=== PATIENT | female | born 1960 | race Caucasian/White ===

== ENCOUNTER 2017-05-27 09:38 | Outpatient (CLI) | payer OTHER, BC ==
[~2017-05-27 09:38] MED LIST: ASPIRIN ADULT L81 M1 PO; CALCIUM PO; COPPER PO; CRANBERRY125 MG PO; FISH OIL1000 M1; PERCOCET1 TA4 PO; PRILOSEC20 MG PO; ZOFRAN4 MG PO; ZOFRAN8 MG PO; [UNRECOGNIZED DRUG - OTHER] PO
== END 2017-05-27 23:00 ==
LOC: LAB SRH 09:38
DX: Z00.00 Encounter for general adult medical examination without abnormal findings (principal); E78.5 Hyperlipidemia, unspecified; K21.9 Gastro-esophageal reflux disease without esophagitis; M75.41 Impingement syndrome of right shoulder
CPT/HCPCS: 90074; 90100; 92690; 93140; 95059

== ENCOUNTER 2017-05-30 08:57 | Outpatient (CLI) | payer OTHER, BC ==
--- NOTE | 2017-05-30 09:55 | DIAGNOSTIC IMAGING REPORT ---
PROCEDURE: XR SHOULDER 2 OR MORE VW-RIGHT INDICATION: IMPINGEMENT SYDROME OF RIGHT SHOULDER TECHNIQUE: Three views. COMPARISON: None. FINDINGS: Osseous structures and joint spaces are normal. IMPRESSION: 1. Normal right shoulder.
== END 2017-05-30 23:00 | disposition home or self-care (01) ==
LOC: XR SRH 08:57 → LAB SRH 08:57 → XR SRH 23:00
DX: M75.41 Impingement syndrome of right shoulder (principal)